=== PATIENT | female | born 1980 | race African-American/Black ===

== ENCOUNTER 2021-10-06 19:37 | Emergency (ER) | payer SELFPAY ==
[2021-10-06 22:05] LABS: BILIRUBIN NEGATIVE (NEGATIVE); BLOOD 3+ Ery/uL (NEGATIVE); CLARITY CLOUDY (CLEAR); COLOR YELLOW (YELLOW); GLUCOSE (U) NORMAL (NORMAL); LEUKOCYTES TRACE Leu/uL (NEGATIVE); NITRITE NEGATIVE (NEGATIVE); PROTEIN TRACE (LOW) mg/dL (NEGATIVE); SPECIFIC GRAVITY >=1.030 (1.001-1.030); UROBILINOGEN 0.2 mg/dL (0.2-1.0)
[2021-10-06 22:09] LABS: HCG (URINE) SCREEN NEGATIVE (NEGATIVE)
[2021-10-06 22:13] LABS: BACTERIA 3+; MUCOUS LARGE
[2021-10-07] MEDS ORDERED: MACROBID100 MG PO (00:51)
[2021-10-08 21:06] LABS: CHLAMYDIA TRACHOMATIS, NAA Negative (Negative); NEISSERIA GONORRHOEAE, NAA Negative (Negative)
== END 2021-10-07 01:35 | disposition home or self-care (01) ==
LOC: FER 19:37
PROVIDERS: Emergency Medicine; Internal Medicine
DX: A59.01 Trichomonal vulvovaginitis (principal); N39.0 Urinary tract infection, site not specified; J45.909 Unspecified asthma, uncomplicated
CPT/HCPCS: 81001; 84703; 87210; 87491; 87591; 99284